=== PATIENT | male | born 1980 | race Caucasian/White ===

== ENCOUNTER 2025-05-12 10:56 | Inpatient (IN) | payer SELFPAY ==
[~2025-05-12] VITALS: Ht 182.9 cm; Wt 90.3 kg
[2025-05-12 11:04] VITALS: O2SAT 98
[2025-05-12] MEDS: ASPIRIN 325MG TABLET PO ONE (11:36)
[2025-05-12 11:54] LABS: BASOPHILS % 1.1 % (0.0-2.0); EOSINOPHILS % 3.5 % (0.0-5.0); HEMATOCRIT. 45.5 % (42.0-52.0); HEMOGLOBIN. 15.2 g/dL (14.0-18.0); LYMPHOCYTES % 37.2 % (20.0-50.0); MEAN PLATELET VOLUME 11.3 fl (7.4-10.4); MONOCYTES % 10.2 % (2.0-8.0); NEUTROPHILS % 48.0 % (40.0-76.0); PLATELET 116 x1000/uL (130-400); RED BLOOD CELL COUNT 5.00 mill/uL (4.7-6.1); RED CELL DISTRIBUTION WIDTH 13.6 % (11.6-14.6)
[2025-05-12 12:18] LABS: CREATININE 1.0 mg/dL (0.6-1.3); UREA NITROGEN BLOOD 13 mg/dL (9-23)
[2025-05-12 12:21] LABS: TROPONIN I HIGH SENSITIVITY < 4 ng/L (3.0-53)
[2025-05-12] MEDS ORDERED: IPRATROPIUM/ALBUTEROL 0.5-3(2.5)MG/3ML NEB HHN PRN (14:15)
[2025-05-12] MEDS ORDERED: CLONIDINE 0.1MG TABLET PO PRN (14:15)
[2025-05-12] MEDS ORDERED: ACETAMINOPHEN 325MG TABLET PO PRN (14:15)
[2025-05-12] MEDS ORDERED: DOCUSATE SODIUM 100MG CAPSULE PO PRN (14:15)
[2025-05-12] MEDS: PANTOPRAZOLE SODIUM 40 MG/VIAL IV SCH (15:08)
[2025-05-12 15:10] LABS: TROPONIN I HIGH SENSITIVITY < 4 ng/L (3.0-53)
[2025-05-12] MEDS: BLOOD SUGAR DIAGNOSTIC STRIP TEST SCH (17:33)
[2025-05-12] MEDS ORDERED: KETOROLAC 30MG/ML VIAL IV PRN (18:15)
[2025-05-12 20:00] VITALS: BP 129/94; PULSE 65; RESP 20; TEMP 36.7; O2SAT 98
[2025-05-12 20:23] VITALS: BP 129/94; PULSE 65; RESP 17; TEMP 36.418
[2025-05-12] MEDS ORDERED: INFLUENZA VACCINE 05/PF 0.5 ML SYRINGE IM ONE (21:00)
[2025-05-12] MEDS: ATORVASTATIN CALCIUM 40MG TABLET PO SCH (21:25)
[2025-05-12] MEDS: ACETAMINOPHEN 325MG TABLET PO PRN (21:33)
[2025-05-12 22:51] LABS: TROPONIN I HIGH SENSITIVITY 21 ng/L (3.0-53)
[2025-05-12] MEDS: ENOXAPARIN 100MG/ML SYR SUBCUT SCH (23:30)
[2025-05-13] VITALS: BP 131/86; PULSE 58; RESP 20; TEMP 36.1; O2SAT 98
[2025-05-13 00:21] LABS: HEPATITIS C AB NON REACTIVE (Neg) (Negative)
[2025-05-13 01:44] LABS: TROPONIN I HIGH SENSITIVITY < 4 ng/L (3.0-53)
[2025-05-13 02:17] LABS: INR 1.0
[2025-05-13 02:33] LABS: ASPARTATE AMINOTRANSFERASE 32 IU/L (<34); BILIRUBIN DIRECT 0.2 mg/dL (<=3.0); BILIRUBIN TOTAL 0.6 mg/dL (0.1-1.0); PHOSPHORUS 4.0 mg/dL (2.5-4.9); PROTEIN TOTAL 6.9 g/dL (6.0-8.3)
[2025-05-13 04:00] VITALS: BP 124/73; PULSE 58; RESP 19; TEMP 36.4; O2SAT 100
[2025-05-13 08:00] VITALS: BP 138/87; PULSE 64; RESP 18; TEMP 36.4; O2SAT 100
[2025-05-13] MEDS ORDERED: IOHEXOL-350 100 ML BOTTLE ONE (09:49)
[2025-05-13] MEDS: ASPIRIN 81MG TABLET PO SCH (10:40)
[2025-05-13 12:00] VITALS: BP 119/75; PULSE 65; RESP 17; TEMP 36.4; O2SAT 99
[2025-05-13] MEDS: ENOXAPARIN 40MG/0.4ML SYR SUBCUT SCH (15:00)
[2025-05-13 16:00] VITALS: BP 133/75; PULSE 67; RESP 17; TEMP 36.3; O2SAT 98
[2025-05-13] MEDS ORDERED: ENOXAPARIN 100MG/ML SYR SUBCUT SCH (18:00)
[2025-05-13 20:00] VITALS: BP 125/84; PULSE 69; RESP 16; TEMP 36.4; O2SAT 98
[2025-05-13 21:35] LABS: BASOPHILS % 0.6 % (0.0-2.0); EOSINOPHILS % 3.6 % (0.0-5.0); HEMATOCRIT. 45.7 % (42.0-52.0); HEMOGLOBIN. 15.8 g/dL (14.0-18.0); LYMPHOCYTES % 34.3 % (20.0-50.0); MEAN PLATELET VOLUME 11.8 fl (7.4-10.4); MONOCYTES % 8.5 % (2.0-8.0); NEUTROPHILS % 53.0 % (40.0-76.0); PLATELET 111 x1000/uL (130-400); RED BLOOD CELL COUNT 5.01 mill/uL (4.7-6.1); RED CELL DISTRIBUTION WIDTH 13.3 % (11.6-14.6)
[2025-05-13 21:52] LABS: CREATININE 1.0 mg/dL (0.6-1.3); TRIGLYCERIDE 110 mg/dL (0-150); TROPONIN I HIGH SENSITIVITY < 4 ng/L (3.0-53); UREA NITROGEN BLOOD 15 mg/dL (9-23)
[2025-05-13 21:53] LABS: LDL CHOLESTEROL 81 mg/dL (5-100)
[2025-05-13 21:54] LABS: CREATINE KINASE MB FRACTION < 0.5 ng/mL (0.5-3.6); PHOSPHORUS 3.4 mg/dL (2.5-4.9)
[2025-05-13 21:58] LABS: T4 FREE 1.33 ng/dL (0.89-1.76)
[2025-05-14] VITALS: BP 125/87; PULSE 61; RESP 16; TEMP 36.2; O2SAT 98
[2025-05-14] MEDS: GUAIFENESIN 200MG/10ML SUGAR FREE UDC PO PRN (00:22)
[2025-05-14 04:00] VITALS: BP 118/75; PULSE 61; RESP 16; TEMP 36.3; O2SAT 99
[2025-05-14 08:00] VITALS: BP 133/79; PULSE 54; RESP 17; TEMP 36.4; O2SAT 100
[2025-05-14 12:00] VITALS: BP 124/84; PULSE 67; RESP 18; TEMP 36.3; O2SAT 100
[2025-05-14 15:36] VITALS: BP 124/84; PULSE 67; RESP 18; TEMP 97.4
[2025-05-14] MEDS ORDERED: ASPI-1497 MT (16:54)
[2025-05-14] MEDS ORDERED: ATOR20TA65 MT (16:55)
== END 2025-05-14 16:20 | disposition home or self-care (01) | DRG 198 ==
LOC: ER 10:56 → 6WST 12:23 → EDBEDREQ 12:29 → EDBEDREQTM 12:29 → 6WST 20:05
PROVIDERS: ADMIT Hospitalist; ATTEND Hospitalist
DX: I20.89 Other forms of angina pectoris (principal); E66.3 Overweight; E78.5 Hyperlipidemia, unspecified; R00.2 Palpitations; R73.9 Hyperglycemia, unspecified; Z68.27 Body mass index [BMI] 27.0-27.9, adult
CPT/HCPCS: 36415; 71045; 71275; 80048; 80061; 80076; 82550; 82553; 82962; 83036; 83735; 84100; 84439; 84443; 84484; 85025; 85379; 86705; 87340; 90686; 93005; 93306; 93970; 99285; J1650; J2470; Q9967